=== PATIENT | female | born 1955 | race Caucasian/White ===

== ENCOUNTER 2022-04-23 00:11 | Emergency (ER) | payer BC ==
[~2022-04-23] VITALS: Ht 170.2 cm; Wt 104.3 kg
[2022-04-23] MEDS ORDERED: LIDOCAINE 2%-EPI 1:100,000 20 ML VIAL ONE (04:12)
[2022-04-23] MEDS ORDERED: LIDOCAINE 2%-EPI 1:100,000 20 ML VIAL IJ ONE (04:15)
--- NOTE | 2022-04-23 05:00 | NUR ---
Patient discharged to home in stable condition. Written and verbal after care instructions given. Patient verbalizes understanding of instructions. Stressed follow up or return to ER for worsening s/s. Patient out of ER with steady gait, no acute signs of distress, VSS, all belongings taken.
[2022-04-23 05:49] VITALS: BP 142/75
== END 2022-04-23 05:49 | disposition home or self-care (01) ==
LOC: ER 00:11
DX: R04.0 Epistaxis (principal); R03.0 Elevated blood-pressure reading, without diagnosis of hypertension
CPT/HCPCS: 30901; A4663